=== PATIENT | female | born 1945 | race Caucasian/White ===

== ENCOUNTER 2018-06-29 11:19 | Emergency (ER) | payer MEDICARE, OTHER, SELFPAY ==
[2018-06-29 11:30] VITALS: BP 146/80; PULSE 77; RESP 18; TEMP 36.6; O2SAT 98; BMI 23.5
--- NOTE | 2018-06-29 11:53 | DI.US.S_ITS ---
PROCEDURE: US PERIPHERAL VENOUS LOWER EXT RT COMPARISON: None. INDICATIONS: swelling redness pain FINDINGS: There is normal compressibility, Doppler augmentation, and color flow involving the right common femoral vein, superficial femoral vein, profunda confluent, greater saphenous confluence, and popliteal vein. Please note that the calf veins are not imaged on this examination. Overlying soft tissues are essentially unremarkable. IMPRESSION: No evidence of right lower extremity deep vein thrombosis. Dictated by: Garrett Salinas M.D. on 06/29/2018 at 11:50 Approved by: Garrett Salinas M.D. on 06/29/2018 at 11:51
[2018-06-29 12:32] LABS: Add Manual Diff / Slide Review NO; Basophils Percent Auto 1.2 % (0-2); Eosinophils Percent Auto 2.7 % (2-4); Hematocrit 39.1 % (36-46); Hemoglobin 13.4 g/dL (12.0-16.0); Lymphocytes Percent Auto 18.6 % (25-40); Mean Corpuscular HGB Conc 34.2 % (30-36); Mean Corpuscular Hemoglobin 33.9 PG (26-34); Mean Corpuscular Volume 99.1 fL (80-100); Monocytes Percent Auto 18.3 % (3-14); Neutrophils Absolute Auto 2200 /uL (1500-7000); Neutrophils Percent Auto 59.2 % (50-75); Platelet Count 124 X10^3/uL (150-400); Red Blood Cell Count 3.95 X10^6/uL (4.0-5.2); Red Cell Distribution Width 16.5 % (11.6-14.8); White Blood Cell Count 3.7 X10^3/uL (4.5-11.0)
[2018-06-29 12:39] VITALS: BP 120/58; PULSE 71; RESP 18; O2SAT 94
--- NOTE | 2018-06-29 12:44 | ED.EXTPRO ---
HPI - Extremity Problem General Chief complaint: Extremity Problem,Nontraumatic Stated complaint: Swelling in R leg Time Seen by Provider: 06/29/18 11:45 Source: patient Mode of arrival: ambulatory Limitations: no limitations History of Present Illness HPI Narrative: Patient is a 73-year-old female who presents with redness and erythema of her right leg. She has complicated medical history of cirrhosis, hypertension and diabetes. She was actually admitted at [facility] and released on June 16, and diagnosed with cellulitis of the right leg. She says she just finished our her course of clindamycin 2 days ago. She feels that overall her leg is the same and is unchanged. Today she noticed that there was some flaking of her skin but no gross pus or drainage from it. She says it has actually been red and erythematous like this for the last 6 weeks. MD Complaint: extremity swelling Related Data Home Medications Medication Instructions Recorded Confirmed cholecalciferol (vitamin D3) 2,000 iu PO DAILY #0 04/03/16 06/29/18 [Vitamin D3] furosemide 40 mg PO DAILY #0 04/03/16 06/29/18 multivitamin [Multiple Vitamins] 1 tab PO DAILY #0 tab 04/03/16 06/29/18 spironolactone [Aldactone] 50 mg PO DAILY #0 04/03/16 06/29/18 vit C-vit V-ljonvq-kfhg-lutein 1 ea PO BID #0 04/03/16 06/29/18 [PreserVision Lutein] Saccharomyces boulardii [Florastor] 1 cap PO BID 06/29/18 06/29/18 insulin aspart U-100 [Novolog 15 - 19 units SUBCUT DIRECTED 06/29/18 06/29/18 Flexpen U-100 Insulin] insulin glargine [Basaglar KwikPen 15 units SUBCUT BEDTIME 06/29/18 06/29/18 U-100 Insulin] omeprazole 20 mg PO DAILY 06/29/18 06/29/18 propranolol 15 mg PO TID 06/29/18 06/29/18 Previous Rx's Medication Instructions Recorded levofloxacin [Levaquin] 750 mg PO DAILY #7 tab 06/29/18 Allergies Allergy/AdvReac Type Severity Reaction Status Date / Time No Known Drug Allergies Allergy Verified 06/29/18 12:26 Review of Systems Review of Systems GENERAL: Denies chills, fatigue, malaise, fever, sweats, travel HEENT: Denies sinus pain, ear pain, sore throat, difficulty swallowing, neck pain RESPIRATORY: Denies dyspnea, cough, wheezing, hemoptysis, sputum. CARDIOVASCULAR: Denies chest pain, palpitations, orthopnea, edema GASTROINTESTINAL: Denies nausea, vomiting, abdominal pain, diarrhea, constipation, melena. : Denies dysuria, frequency, incontinence, hematuria, urinary retention, flank pain. MUSCULOSKELETAL: Denies weakness, joint pain, or bony pain SKIN: Erythema NEUROLOGIC: Denies weakness, dizziness, headache, numbness, change in speech, confusion PSYCHIATRIC: No concerning psychosocial issues. 12 point review of systems is negative except for those stated above and HPI [facility] Medical History Cirrhosis (Chronic) Diabetes (Chronic) Hypertension (Chronic) Social History Smoking Status: Never smoker Exam Initial Vital Signs Initial Vital Signs: Vital Signs Temperature 97.9 F 06/29/18 11:30 Pulse Rate 77 06/29/18 11:30 Respiratory Rate 18 06/29/18 11:30 Blood Pressure 146/80 H 06/29/18 11:30 Pulse Oximetry 98 06/29/18 11:30 GENERAL: Well-appearing, well-nourished and in no acute distress. HEENT: Head atraumatic,EOMI, pupils reactive, neck is supple CARDIOVASCULAR: Regular rate and rhythm without murmurs, rubs or gallops. RESPIRATORY: Breath sounds equal bilaterally, no wheezes rales or rhonchi. ABDOMEN: Soft, nontender. Normoactive bowel sounds all 4 quadrants. No guarding or rebound. : No CVA tenderness EXTREMITIES: Normal range of motion, no clubbing or edema. Neurovascularly intact NEUROLOGICAL: Alert and oriented x4.Normal gait and speech. SKIN: Erythema right leg goes up to the knee. There is 1 area of dry skin no serosanguineous or gross pus Appears chronic she has some scarring on the right leg as well. Left leg has hyperpigmented areas Course Orders Ordered: ED Orders 06/29/18 11:53 US periph venous low extrem rt Stat 06/29/18 12:10 Complete Blood Count AUTO DIFF Stat Comprehensive Metabolic Panel Stat Lactate (Lactic Acid) Stat Procalcitonin Stat 06/29/18 12:45 Blood Culture Stat Vital Signs - 8 hr 06/29/18 11:30 06/29/18 12:39 06/29/18 13:02 Temperature 97.9 F Pulse Rate 77 71 68 Respiratory Rate 18 18 14 Blood Pressure 146/80 H Blood Pressure [Left Arm] 120/58 L 115/54 L Pulse Oximetry 98 94 97 06/29/18 14:30 Temperature Pulse Rate 74 Respiratory Rate 16 Blood Pressure Blood Pressure [Left Arm] 128/59 L Pulse Oximetry 96 MDM - Extremity (Nontraumatic) Lab Data Result diagrams: 06/29/18 12:10 06/29/18 12:10 Lab Results 06/29/18 06/29/18 06/29/18 Range/Units 12:10 12:10 12:10 WBC 3.7 L (4.5-11.0) X10^3/uL RBC 3.95 L (4.0-5.2) X10^6/uL Hgb 13.4 (12.0-16.0) g/dL Hct 39.1 (36-46) % MCV 99.1 (80-100) fL MCH 33.9 (26-34) PG MCHC 34.2 (30-36) % RDW 16.5 H (11.6-14.8) % Plt Count 124 L (150-400) X10^3/uL Neut % (Auto) 59.2 (50-75) % Lymph % (Auto) 18.6 L (25-40) % [place] % (Auto) 18.3 H (3-14) % Eos % (Auto) 2.7 (2-4) % Baso % (Auto) 1.2 (0-2) % Neut # (Auto) 2200 (1000-7362) /uL Sodium 139 (137-145) mmol/L Potassium 4.2 (3.4-5.1) mmol/L Chloride 104 (98-107) mmol/L Carbon Dioxide 22 (22-32) mmol/L BUN 25 H (7-17) mg/dL Creatinine 0.80 (0.52-1.04) mg/dL Estimated GFR > 60.0 (>60) mL/min BUN/Creatinine Ratio 31.3 H (6-22) Glucose 120 H (80-110) mg/dL Lactate (0.7-2.1) mmol/L Calcium 9.1 (8.4-10.2) mg/dL Total Bilirubin 1.4 H (0.2-1.3) mg/dL AST 76 H (14-36) IU/L ALT 56 H (9-52) IU/L Alkaline Phosphatase 191 H (38-126) U/L Total Protein 6.6 (6.3-8.2) g/dL Albumin 3.4 L (3.5-5.0) g/dL Globulin 3.2 (1.7-4.1) g/dL Albumin/Globulin Ratio 1.1 (1.0-2.8) Procalcitonin 0.16 (<0.5) ng/mL 06/29/18 Range/Units 12:10 WBC (4.5-11.0) X10^3/uL RBC (4.0-5.2) X10^6/uL Hgb (12.0-16.0) g/dL Hct (36-46) % MCV (80-100) fL MCH (26-34) PG MCHC (30-36) % RDW (11.6-14.8) % Plt Count (150-400) X10^3/uL Neut % (Auto) (50-75) % Lymph % (Auto) (25-40) % [place] % (Auto) (3-14) % Eos % (Auto) (2-4) % Baso % (Auto) (0-2) % Neut # (Auto) (8450-9771) /uL Sodium (137-145) mmol/L Potassium (3.4-5.1) mmol/L Chloride (98-107) mmol/L Carbon Dioxide (22-32) mmol/L BUN (7-17) mg/dL Creatinine (0.52-1.04) mg/dL Estimated GFR (>60) mL/min BUN/Creatinine Ratio (6-22) Glucose (80-110) mg/dL Lactate 1.4 (0.7-2.1) mmol/L Calcium (8.4-10.2) mg/dL Total Bilirubin (0.2-1.3) mg/dL AST (14-36) IU/L ALT (9-52) IU/L Alkaline Phosphatase (38-126) U/L Total Protein (6.3-8.2) g/dL Albumin (3.5-5.0) g/dL Globulin (1.7-4.1) g/dL Albumin/Globulin Ratio (1.0-2.8) Procalcitonin (<0.5) ng/mL Imaging Data Venous US: Radiologist's impression: No evidence of right lower extremity DVT read at 11:50 p.m. report for some reason not in [facility] Narrative Medical decision making narrative: I have called and spoken with wound care. Her white count appears stable slightly elevated procalcitonin however she did just finish the clindamycin and may be decreasing. Wound care has actually been to the ED and evaluated patient recommend of stronger more broad-spectrum antibiotics. At this time no need for wound care referral there is actually no wounds. Discharge Plan Departure Patient Disposition: Home Clinical Impression: Cellulitis of leg, right Discharge Date/Time: 06/29/18 14:36 Interventions: ED Discharge Assessment Last Done: 06/29/18 14:36 Instructions: DI for Cellulitis -- Adult Activity Restrictions/Additional Instructions: *You have been diagnosed with cellulitis of right leg *What to do: Elevate, wear compression stocking *Continue to take medications as directed Levaquin 1 tab once a day for 7 days *Follow up with your primary care provider in 2-3 days *Return to ER if you should have redness, drainage, fever or any new, worsening or concerning symptoms Prescriptions: New levofloxacin [Levaquin] 750 mg tablet 750 mg PO DAILY Qty: 7 RF: 0 No Action spironolactone [Aldactone] 50 MG tablet 50 mg PO DAILY Qty: 0 RF: 0 multivitamin [Multiple Vitamins] 1 EACH tablet 1 tab PO DAILY Qty: 0 RF: 0 furosemide 40 MG tablet 40 mg PO DAILY Qty: 0 RF: 0 vit C-vit G-uqflhs-vajo-lutein [PreserVision Lutein] 1 EACH capsule 1 ea PO BID Qty: 0 RF: 0 cholecalciferol (vitamin D3) [Vitamin D3] 2,000 UNIT capsule 2,000 iu PO DAILY Qty: 0 RF: 0 propranolol 10 mg tablet 15 mg PO TID RF: 0 insulin aspart U-100 [Novolog Flexpen U-100 Insulin] 100 unit/mL insulin pen 15 - 19 units subcut DIRECTED RF: 0 Saccharomyces boulardii [Florastor] 250 mg capsule 1 cap PO BID RF: 0 insulin glargine [Basaglar KwikPen U-100 Insulin] 100 unit/mL (3 mL) insulin pen 15 units subcut BEDTIME RF: 0 omeprazole 20 mg Capsule,Delayed Release(Dr/Ec) 20 mg PO DAILY RF: 0 Referrals: Shon Alcaraz MD [Primary Care Provider] -
[2018-06-29 12:47] LABS: Lactate (Lactic Acid) 1.4 mmol/L (0.7-2.1)
[2018-06-29 12:48] LABS: Alanine Aminotransferase 56 IU/L (9-52); Albumin 3.4 g/dL (3.5-5.0); Albumin Globulin Ratio 1.1 (1.0-2.8); Alkaline Phosphatase 191 U/L (38-126); Aspartate Aminotransferase 76 IU/L (14-36); BUN Creatinine Ratio 31.3 (6-22); Bilirubin Total 1.4 mg/dL (0.2-1.3); Blood Urea Nitrogen 25 mg/dL (7-17); Calcium 9.1 mg/dL (8.4-10.2); Carbon Dioxide 22 mmol/L (22-32); Chloride 104 mmol/L (98-107); Estimated Glomerular Filt Rate > 60.0 mL/min (>60); Globulin 3.2 g/dL (1.7-4.1); Glucose 120 mg/dL (80-110); HEMOLYSIS < 15 (0-50); Potassium 4.2 mmol/L (3.4-5.1); Sodium 139 mmol/L (137-145); Total Protein 6.6 g/dL (6.3-8.2)
[2018-06-29 13:02] VITALS: BP 115/54; PULSE 68; RESP 14; O2SAT 97
[2018-06-29 13:08] LABS: Procalcitonin 0.16 ng/mL (<0.5)
[2018-06-29 14:30] VITALS: BP 128/59; PULSE 74; RESP 16; O2SAT 96
== END 2018-06-29 14:36 | disposition home or self-care (01) ==
PROVIDERS: Emergency Provider Emergency Medicine; PCP Internal Medicine
DX: L03.115 Cellulitis of right lower limb (principal)
CPT/HCPCS: 36415; 36591; 80053; 83605; 84145; 85025; 87040; 93971; 99283; 99284